=== PATIENT | male | born 1965 | race Caucasian/White ===

== ENCOUNTER 2016-10-29 21:16 | Inpatient (IN) | payer OTHER ==
--- NOTE | ~2016-10-29 | DS ---
Unit #: [id number] #: [id number] Patient: ANNA CARUSO [id number] [address] [address] [id number] I MR#: [id number] NAME: ANNA CARUSO ROOM: 57 Age: 51 Sex: M Admission Date: 10/29/2016 : 1965 Discharge Date: Attending Physician: Janki Coffman M.D. Primary Care Physician: Primary Care Physician No DISCHARGE SUMMARY DISCHARGE DIAGNOSES 1. Acute hypoxic respiratory failure present on admission. 2. Chronic obstructive pulmonary disease with exacerbation. 3. History of seizures on gabapentin. 4. History of anxiety. 5. Alcohol dependence with mild delirium tremens. 6. Diabetes mellitus, type 2, uncontrolled. 7. Smoking. CONSULTATIONS None. PROCEDURES None. LABORATORY DATA Blood cultures negative, glucose 162, creatinine 0.5, ammonia 40, INR 1.0, WBC 1.8, hemoglobin 14.8, platelets 251, hemoglobin A1c 5.7. ALLERGIES None. DISCHARGE MEDICATIONS 1. Neurontin 800 four times daily 2. Amitriptyline 50 daily 3. Zoloft 150 daily 4. Nicotine 21 mg transdermal daily 5. Minipress 1 mg p.o. daily 6. Doxycycline 100 p.o. b.i.d. 7. Symbicort 160 mcg two puffs inhalation b.i.d. 8. Robitussin 10 mL p.o. three times daily p.r.n. cough 9. Thiamine 100 daily 10. Folic acid 1 mg daily 11. Prednisone tapering dose 12. Albuterol MDI two puffs inhalation four times daily p.r.n. shortness of breath HOSPITALIZATION COURSE [age] year old, admitted with shortness of breath: Acute hypoxic respiratory failure from chronic obstructive pulmonary disease, currently off oxygen. Chronic obstructive pulmonary disease with exacerbation, started on Unit #: [id number] #: [id number] Patient: ANNA CARUSO Krissbs with IV Solu-Medrol, currently he does have occasional wheezing. Continue the prednisone tapering dose, Symbicort, albuterol at home. Alcohol dependence with delirium tremens, the patient received IV Ativan and alcohol withdrawal protocol, and thiamine IV. The patient will be discharged on Librium, thiamine, and folic acid. Diabetes mellitus, type 2, uncontrolled. History of seizures, continue with gabapentin. Discharge home and follow with family physician in one week's time. Dictated by... Mike Car TD: 10/31/2016 13:50 JOB #: [id number] DISCHARGE SUMMARY Page 1 of 1 X Janki Coffman MD X DISCHARGE SUMMARY
--- NOTE | ~2016-10-29 | CR72 ---
[facility] A Service of [facility] RADIOLOGY TEXT RESULTS PATIENT: ANNA CARUSO LOCATION: [facility] : [birth year] UNIT #: [id number] AGE: [address]: Gt Meraz MD SEX: M ORDER DR: [id number] [facility] [address] [place], [place] [address] [id number] MR#: [id number] Acc #: [id number] NAME: ANNA CARUSO : 1965 SEX: M STUDY DATE/TIME: 10/29/2016 21:35 UNIT: [facility] ROOM: STUDY DESCRIPTION: CR Chest Single View Portable Attending Physician: Gt Meraz M.D. Ordering Physician: Gt Meraz M.D. MEDICAL IMAGING REPORT This report is preliminary unless electronic signature is present EXAM Portable chest HISTORY Shortness of air. Cough and COPD. Symptoms for 2 days. FINDINGS Mild hyperinflation of both lungs. Cardiac size and pulmonary vascularity are normal. Minimal left suprahilar atelectasis. Remainder lungs are clear. Old fractures lateral left fourth and fifth ribs. IMPRESSION No acute findings. No active disease. Dictated by... Steffen Swartz M.D. THIS IS AN ELECTRONICALLY VERIFIED REPORT Steffen Swartz M.D. at 10/29/2016 10:32 PM DFL/pcl TD: 10/29/2016 22:24 JOB #: [id number] MEDICAL IMAGING REPORT Page 1 of 1 COPY
--- NOTE | ~2016-10-29 | HP ---
Unit #: [id number] #: [id number] Patient: ANNA CARUSO [id number] [address] [place], [place] [address] [id number] I MR#: [id number] NAME: ANNA CARUSO ROOM: 571 Age: 51 Sex: M Admission Date: 10/29/2016 : 1965 Attending Physician: Janki Coffman M.D. Primary Care Physician: No Primary Care Physician HISTORY AND PHYSICAL CHIEF COMPLAINT Shortness of breath, cough, and wheezing. DISCUSSION This is a 51-year-old gentleman with a past medical history of COPD, history of seizures on gabapentin, anxiety, and history of diabetes (before told positive diabetes, been on diet, not on medication). He says he has some rescue inhalers. Otherwise, he used to be on Spiriva in the past, but has not been using for a long time. He presented to the hospital with chief complaining of shortness of breath. Symptoms started two days ago and got progressively worse and he was unable to breathe today and came to the emergency room and found to be in COPD exacerbation. Oxygen saturation initially was 88%, which was improved after oxygen and, eventually, he had been admitted for COPD exacerbation. Denied chest pain. Denies nausea and vomiting. Mainly, he had been having mainly dry cough and wheezing and shortness of breath, but no other complaint. No headache. No dizziness. PAST MEDICAL HISTORY 1. History of COPD. 2. History of seizures on gabapentin. 3. History of anxiety. 4. History of diabetes on a diet. PAST SURGICAL HISTORY 1. History of right ear surgery. 2. History of bilateral inguinal hernia repairs. SOCIAL HISTORY He used to smoke 1-2 packs daily since age 17 and still continues to smoke 1/2 pack daily. He drinks alcohol, 2-3 beers, on a daily basis. Denies any illicit drug use. FAMILY HISTORY Diabetes in grandmother. ALLERGIES No known drug allergies. HOME MEDICATIONS He said he takes gabapentin 800 mg 4 times daily, aspirin, and some rescue inhalers (he does not know the name). REVIEW OF SYSTEMS Unit #: [id number] #: [id number] Patient: ANNA CARUSO All review of systems negative, except the history of present illness. PHYSICAL EXAMINATION GENERAL APPEARANCE: Middle-aged man lying in the bed comfortably. Currently not in any distress. He is alert, awake, and oriented x3. VITAL SIGNS: His current vitals are following: Temperature 97.4, heart rate 113, respiratory rate 18, and blood pressure 164/97. HEENT: Pupils equal and reactive to light and accommodation. Head is normocephalic and atraumatic. Head is atraumatic and normocephalic. Sclerae nonicteric. Extraocular muscles intact. NECK: Supple. No JVD. LUNGS: Bilateral rhonchi and expiratory wheeze positive. HEART: S1 and S2. Regular rate and rhythm. Tachycardia. ABDOMEN: Soft, nontender, and nondistended. Bowel sounds positive. EXTREMITIES: Inspection normal. No cyanosis, no clubbing, and no edema. NEURO: Alert and oriented x4. Cranial nerves, II-XII, are intact. Power 5/5 on both sides. PSYCH: Normal mood and affect. SKIN: No rash. Warm and dry. DIAGNOSTIC STUDIES LABORATORY: Sodium 138, potassium 4.1, chloride 105, glucose 83, BUN 5, creatinine 0.7, and LFTs within normal limits. Troponin less than 0.05. White count is 10, hemoglobin 16, hematocrit 48, and platelets are 251. IMAGING: Chest x-ray: No acute findings. ASSESSMENT AND PLAN 1. Acute exacerbation of COPD. Will admit the patient on monitored bed and start on IV Solu-Medrol, IV Levaquin, and the nebulizer. 2. History of seizures on gabapentin. 3. History of anxiety. 4. History of diabetes. Was told before. I will repeat A1c and place on sliding scale while on steroids. 5. GI prophylaxis, start on Protonix. 6. Tobacco and alcohol abuse. 7. DVT prophylaxis, will place the patient on Lovenox. Dictated by Mike Armas/arnol TD: 10/30/2016 06:06 JOB #: [id number] HISTORY AND PHYSICAL Page 1 of 1 X X HISTORY AND PHYSICAL
--- NOTE | ~2016-10-29 | EKG ---
PATIENT: ANNA CARUSO UNIT #: [id number] Ventricular Rate: 109 BPM Atrial Rate: 109 BPM P-R Interval: 178 ms QRS Duration: 96 ms Q-T Interval: 344 ms QTC Calculation(Bezet): 463 ms P [place]: 72 degrees Calculated R [place]: 73 degrees Calculated T [place]: 70 degrees Diagnosis Line: Sinus tachycardia Diagnosis Line: Possible Left atrial enlargement Diagnosis Line: Incomplete right bundle branch block Diagnosis Line: Borderline ECG Diagnosis Line: No previous ECGs available Diagnosis Line: Confirmed by MADHURI FELIX MD ([id number]) on 10/30/2016 Diagnosis Line: 6:29:29 PM INTERPRETING MD: ISIDRO STREET
[2016-10-29 21:37] LABS: BASOPHIL% 0.3 % (0-2.5); DIFF IND NO; EOSINOPHIL# 0.2 X10e3 (0-0.7); EOSINOPHIL% 2.2 % (0.0-7.0); HEMATOCRIT 48.8 % (38.0-50.0); HEMOGLOBIN 16.3 gm/dL (13.0-16.0); LYMPHOCYTE# 1.5 X10e3 (1.0-3.5); LYMPHOCYTE% 13.4 % (17.0-45.0); MEAN CORPUSCULAR HEMOGLOBIN 31.7 PG (28-34); MEAN CORPUSCULAR HGB CONC 33.3 g/dL (30-36); MEAN PLATELET VOLUME 7.6 FL (6.5-11.5); MONOCYTE# 0.6 X10e3 (0-1.0); MONOCYTE% 5.9 % (3.0-12.0); NEUTROPHIL# 8.5 X10e3 (1.5-7.1); NEUTROPHIL% 78.2 % (40-75); PLATELET COUNT 251 X10e3 (140-420); RED BLOOD COUNT 5.14 X10e (3.90-5.60); RED CELL DISTRIBUTION WIDTH 16.2 % (11.0-15.5); WHITE BLOOD COUNT 10.9 X10e3 (4.0-10.5)
[2016-10-29 22:05] LABS: POC - CKMB 2.9 ng/mL (0.0-7.9); POC - TROPONIN <0.05 ng/mL (<=0.05)
[2016-10-29 22:06] LABS: ALBUMIN SERUM 3.6 g/dL (3.5-5.0); BILIRUBIN, DIRECT 0.1 mg/dL (0.0-0.2); BILIRUBIN,INDIRECT 0.7 mg/dL (0.0-0.9); BILIRUBIN,TOTAL 0.8 mg/dL (0.2-2.0); BUN/CREATININE RATIO 7.14; CREATININE SERUM 0.7 mg/dL (0.6-1.4); GLOM FILT RATE Estimated 110.9 mL/min (>60); POTASSIUM 4.1 mmol/L (3.5-5.1); PROTEIN TOTAL SERUM 7.3 g/dL (6.0-8.3)
[2016-10-30 07:18] LABS: BUN/CREATININE RATIO 11.66; CREATININE SERUM 0.6 mg/dL (0.6-1.4); GLOM FILT RATE Estimated 118.1 mL/min (>60)
[2016-10-30] MEDS ORDERED: AMITRIPTYLINE H50 MG PO (18:49)
[2016-10-30] MEDS ORDERED: MINIPRESS1 MG PO (18:50)
[2016-10-30] MEDS ORDERED: ZOLOFT100 MG PO (18:51)
[2016-10-30] MEDS ORDERED: NEURONTIN800 MG PO (18:51)
[2016-10-31 06:27] LABS: BASOPHIL# 0.1 X10e3 (0-0.3); BASOPHIL% 1.2 % (0-2.5); HEMATOCRIT 45.3 % (38.0-50.0); HEMOGLOBIN 14.8 gm/dL (13.0-16.0); LYMPHOCYTE# 0.4 X10e3 (1.0-3.5); LYMPHOCYTE% 3.3 % (17.0-45.0); MEAN CELL VOLUME 96.3 FL (83-96); MEAN CORPUSCULAR HEMOGLOBIN 31.6 PG (28-34); MEAN CORPUSCULAR HGB CONC 32.8 g/dL (30-36); MEAN PLATELET VOLUME 7.8 FL (6.5-11.5); MONOCYTE# 0.2 X10e3 (0-1.0); NEUTROPHIL% 93.5 % (40-75); PLATELET COUNT 251 X10e3 (140-420); RED CELL DISTRIBUTION WIDTH 16.1 % (11.0-15.5); WHITE BLOOD COUNT 11.8 X10e3 (4.0-10.5)
[2016-10-31 06:28] LABS: DIFF IND NO
[2016-10-31 06:50] LABS: PROTHROMBIN TIME (PATIENT) 10.4 SECONDS (9.6-11.5)
[2016-10-31 07:18] LABS: BILIRUBIN,TOTAL 0.3 mg/dL (0.2-2.0); CALCIUM SERUM 8.6 mg/dL (8.4-10.2); CREATININE SERUM 0.5 mg/dL (0.6-1.4); GLOM FILT RATE Estimated 127.3 mL/min (>60); POTASSIUM 3.7 mmol/L (3.5-5.1); PROTEIN TOTAL SERUM 6.7 g/dL (6.0-8.3)
[2016-10-31] MEDS ORDERED: NICOTINE PATCH1 EACH TD (13:20)
[2016-10-31] MEDS ORDERED: SYMBICORT INH (13:24)
[2016-10-31] MEDS ORDERED: ALBUTEROL17 GM INH (13:25)
[2016-10-31] MEDS ORDERED: PREDNISONE PO (13:25)
[2016-10-31] MEDS ORDERED: THIAMINE HCL100 M1 PO (13:26)
[2016-10-31] MEDS ORDERED: FOLIC ACID1 MG PO (13:26)
[2016-10-31] MEDS ORDERED: [UNRECOGNIZED DRUG - OTHER] PO (13:29)
[2016-10-31] MEDS ORDERED: DOXYCYCLINE HY100 M3 PO (13:29)
[2016-10-31] MEDS ORDERED: LIBRIUM25 M1 PO (13:30)
== END 2016-10-31 18:31 | disposition home or self-care (01) | DRG 189 ==
LOC: CED 21:16 → CEDOF 23:10 → C5C 10-30 00:31
PROVIDERS: Emergency Medicine; Family Medicine
DX: J96.01 Acute respiratory failure with hypoxia (principal); E11.65 Type 2 diabetes mellitus with hyperglycemia; J44.1 Chronic obstructive pulmonary disease with (acute) exacerbation; F41.9 Anxiety disorder, unspecified; F17.210 Nicotine dependence, cigarettes, uncomplicated; F10.20 Alcohol dependence, uncomplicated
CPT/HCPCS: 36415; 71010; 80048; 80053; 80076; 82140; 82553; 82947; 83036; 84484; 85025; 85610; 87040; 93005; 94640; 94760; 96374; 99285; J1650; J1815; J1956; J2920; J2930; J3411; J3475

== ENCOUNTER 2016-11-03 02:06 | Inpatient (IN) | payer OTHER ==
--- NOTE | ~2016-11-03 | DS ---
Unit #: [id number] #: [id number] Patient: ANNA CARUSO [id number] [address] [place], [place] [address] [id number] I MR#: [id number] NAME: ANNA CARUSO ROOM: 313 Age: 51 Sex: M Admission Date: 11/03/2016 : 1965 Discharge Date: 11/05/2016 Attending Physician: Talat Purcell M.D. Primary Care Physician: No Primary Care Physician DISCHARGE SUMMARY DISCHARGE DIAGNOSES 1. Aspiration pneumonia, was treated with IV Zosyn, will be discharged with Levaquin orally. 2. Esophageal dysphagia: Gastroenterology has been consulted and will do any workup outpatient. 3. Urinary retention: A catheter was transiently used. Patient has had catheter removed, was seen by urologist. A PSA was ordered. Patient will follow up with urology outpatient. 4. Acute chronic obstructive pulmonary disease exacerbation: IV steroid was utilized and a slow taper course of prednisone to discharge home with. 5. Continued alcohol abuse: Stable, no seizure during this hospitalization. 6. Diet-controlled type 2 diabetes. 7. Seizure disorder. 8. Tobacco use. 9. History of hepatitis C. CONSULTANTS 1. Dr. Basurto with gastroenterology. 2. [facility]. PROCEDURE None. DIAGNOSTIC STUDIES LABORATORY: On the day of discharge, labs include BMP: Glucose 170, BUN 13, creatinine 0.6, sodium 137, potassium 3.6, chloride 105, CO2 of 24, calcium 8.5. Magnesium 1.9. CBC with WBC 11.4, RBC 4.57, hemoglobin 14.3, hematocrit 44, MCV 96.2, MCH 31.2, MCHC 32.4, RDW 15.6, platelets 276,000, MPV 7.4. IMAGING: Chest x-ray, November 03, 2016: Impression - COPD. Patchy infiltrates in the right upper lobe medially and left perihilar region, new or increased since study on October 29, 2016. Heart size normal. Old healed right upper rib fractures. HOSPITAL COURSE The patient is a 51-year-old male with past medical history of ongoing alcohol abuse, seizure disorder, COPD, ongoing tobacco usage who presented to the emergency department due to worsening of shortness of breath, cough, and congestion. The patient was admitted October 29 through October 31 Unit #: [id number] #: [id number] Patient: ANNA CARUSO for COPD exacerbation with hypoxic respiratory failure. He was anxious to leave at that time; therefore, he was discharged home on doxycycline along with oral steroids and developed worsening shortness of breath despite being back on the steroid treatment, also wheezing with a nonproductive cough and diaphoresis. He went back to the emergency department due to severe pain in his chest which really sounds like pleuritic chest pain, worsens with cough. States that when he holds onto his chest when he coughs the symptoms are better. In the emergency department, his oxygen saturation was 88% to 90% on room air. Chest x-ray showed increased infiltrate. Patient readmitted for persistent pneumonia and acute COPD exacerbation. The patient was treated with Zosyn for likely aspiration pneumonia given patient's significant history of severe alcohol abuse. Due to his persistent pneumonia, Speech Therapy was consulted who notes the patient has esophageal dysphagia and therefore, Dr. aBsurto of gastroenterology was consulted who thought that the patient was stable to be discharged home and to call the office for further workup. Patient also had symptoms of dysuria present on admission. He was started on Flomax but despite this, he did not have great urine output and a bladder scan revealed that patient's post-void scan was I believe was 400 mL. Therefore, a catheter was placed and Dr. Boggs of [facility] Urology was consulted. Patient was seen by Urology. A PSA was checked which was found to be 2.13 which is nonelevated according to all of the standards. The following day, the patient's Sultana was removed and, per nursing staff, patient is urinating. At this time, the patient is stable, oxygenating well on room air. Patient's oxygen saturation documented was 98% on room air. Patient states that he feels much better and he is ready to be discharge home. The patient was seen in consultation with Dr. Chapin because of ongoing alcohol abuse. He voiced to me that he does have the desire to quit drinking and social services manager has provided him handout as needed. Stressed to patient that his prognosis is poor if he is to continue to drink. DISCHARGE CONDITION Stable to home. FOLLOWUP 1. He is to follow up with primary care physician within one to two weeks. 2. Followup with Dr. Basurto, call his office. 3. Followup with Urology within one to two weeks. DISCHARGE ACTIVITY Nonrestricted. DIET Nonrestricted. DISCHARGE MEDICATIONS 1. Ventolin two puffs inhaled four times daily as needed for shortness of breath. 2. Dulera as that is what is covered with his insurance 200 mcg inhaled twice daily. 3. Prednisone 40 mg orally x3 days, 30 mg orally x3 days, 20 mg orally x3 days, then 10 mg orally x3 days. 4. Flomax 0.4 orally mg at bedtime. 5. Gabapentin 800 mg orally four times daily. 6. Amitriptyline 50 mg orally at bedtime. 7. Zoloft 150 mg orally every morning. Unit #: [id number] #: [id number] Patient: ANNA CARUSO 8. Librium 25 mg orally daily. 9. Minipress 1 mg orally daily. 10. Folic acid 1 mg orally daily. 11. Thiamine 100 mg orally daily. 12. Levaquin 750 mg orally daily for the next 10 days. Dictated by... Eitan Obrien PA-C for Mike Agarwal TD: 11/05/2016 16:59 JOB #: [id number] DISCHARGE SUMMARY Page 1 of 1 X X DISCHARGE SUMMARY
--- NOTE | ~2016-11-03 | CO ---
Unit #: [id number] #: [id number] Patient: ANNA CARUSO [id number] [address] [address] [id number] I MR#: [id number] NAME: ANNA CARUSO ROOM: 313 Age: 51 Sex: M Admission Date: 11/03/2016 : 1965 Attending Physician: Talat Purcell M.D. Primary Care Physician: No Primary Care Physician Consultation Date: 11/04/2016 CONSULTATION REPORT REASON FOR CONSULTATION Urinary retention. HISTORY This 51-year-old man was recently hospitalized for pneumonia and decided to leave prematurely but returns due to worsening of his respiratory status. He was noted to have increased severity of chronic voiding symptoms and a Sultana catheter was placed for (1) . He is slow to awaken this morning but his helps clarify with us that he has severe nocturia at least four times at night and he has urinary hesitancy, frequency, urgency, and a sense of trouble emptying. He does not recall any history of gross hematuria, urine infections, or stone disease. He has not had treatment for his voiding difficulties. Of pertinence is obvious chronic alcohol use. PAST MEDICAL HISTORY 1. ETOH. 2. Pneumonia. 3. Noncompliance. 4. COPD. 5. Seizures. 6. Diabetes. 7. Alcohol withdrawal noted on recent admission. 8. Anxiety. 9. Diagnosis of hepatitis C. PAST SURGICAL HISTORY 1. Right ear. 2. Bilateral inguinal herniorrhaphy. MEDICATIONS Include tamsulosin, just started. On admission, he was takin. Neurontin. 2. Elavil. 3. Zoloft. 4. Nicoderm. 5. Minipress. 6. Doxycycline. 7. Symbicort. 8. Robitussin. 9. Thiamine. 10. Folic acid. 11. Prednisone taper. 12. Albuterol. Unit #: [id number] #: [id number] Patient: ANNA CARUSO FAMILY HISTORY Negative for prostate cancer. SOCIAL HISTORY Lives with of 22 years. Smokes one pack per day for 34 years. Alcohol use exceeding six-pack most days. REVIEW OF SYSTEMS Includes cough, chest pain, shortness of breath, wheezing, diaphoresis, as well as, the above urinary symptoms, nightmares. Other systems reviewed and negative. PHYSICAL EXAMINATION GENERAL: On examination, patient is awake, alert, and comfortable during the questioning. ABDOMEN: Soft, nontender. No scars. No masses, hernias, or organomegaly. GENITALIA: Phallus normal. Circumcised. Sultana catheter in place draining clear yellow urine. Testes and epididymis normal, descended. Healthy skin in the perineum. Good hygiene. DIGITAL: Normal anus and sphincter tone. Empty vault. Prostate feels 40 g smooth, benign with no nodularity, fluctuance, or tenderness. EXTREMITIES: No edema. NEUROLOGIC: Intact. SKIN: Normal. DIAGNOSTIC STUDIES LABORATORY: Creatinine 0.7. Liver function tests are normal. Sodium 131. Ethanol 151. IMPRESSION Urinary retention due to be benign prostatic hypertrophy (untreated) as well as likely some degree of alcohol (2) . PLAN Will check a PSA. As bladder was not dramatically distended, will proceed with a voiding trial in the morning. Thank, Demi Gustafson, for the consultation. Dictated by... Brian Boggs M.D. [facility]/jose TD: 11/04/2016 12:41 JOB #: [id number] CC: Demi De Oliveira M.D. Unit #: [id number] #: [id number] Patient: ANNA CARUSO CONSULTATION REPORT Page 1 of 1 X Brian Boggs MD X CONSULTATION REPORT
--- NOTE | ~2016-11-03 | EKG ---
PATIENT: ANNA CARUSO UNIT #: [id number] Ventricular Rate: 87 BPM Atrial Rate: 87 BPM P-R Interval: 180 ms QRS Duration: 92 ms Q-T Interval: 396 ms QTC Calculation(Bezet): 476 ms P [place]: 51 degrees Calculated R [place]: 58 degrees Calculated T [place]: 64 degrees Diagnosis Line: Normal sinus rhythm Diagnosis Line: Normal ECG Diagnosis Line: When compared with ECG of 03-NOV-2016 02:39, Diagnosis Line: (unconfirmed) Diagnosis Line: No significant change was found Diagnosis Line: Confirmed by MADHURI FELIX MD ([id number]) on 11/03/2016 Diagnosis Line: 10:39:18 PM INTERPRETING MD: ISIDRO STREET
--- NOTE | ~2016-11-03 | CR72 ---
[facility] A Service of [facility] RADIOLOGY TEXT RESULTS PATIENT: ANNA CARUSO LOCATION: [facility] 313-01 : [birth year] UNIT #: [id number] AGE: [address]: Demi De Oliveira MD SEX: M ORDER DR: [id number] [facility]. [place], [place] [address] [id number] E MR#: [id number] Acc #: [id number] NAME: ANNA CARUSO : 1965 SEX: M STUDY DATE/TIME: 11/03/2016 2:30 UNIT: [facility] ROOM: STUDY DESCRIPTION: CR Chest Single View Portable Attending Physician: Gt Meraz M.D. Ordering Physician: Gt Meraz M.D. Primary Care Physician: Primary Care Physician No MEDICAL IMAGING REPORT This report is preliminary unless electronic signature is present EXAM Chest x-ray 11/03/2016 HISTORY 51-year-old male in the ED complaining of 1-week history of shortness of air, cough and chest pain. Smoker. TECHNIQUE AP portable upright chest x-ray. FINDINGS Generalized pulmonary hyperinflation suggests COPD. Patchy infiltrate in the right upper lobe medially and in the left perihilar region, new or increased since 10/29/2016. No dense airspace consolidation or pleural effusion. Heart size normal. Old healed right upper rib fractures. IMPRESSION 1. COPD. 2. Patchy infiltrates in the right upper lobe medially and left perihilar region, new or increased since the recent study of 10/29/2016. 3. Heart size normal. 4. Old healed right upper rib fractures. Dictated by... Juan Nation M.D. THIS IS AN ELECTRONICALLY VERIFIED REPORT Juan Nation M.D. at 11/03/2016 5:59 AM ARNAVW/karl TD: 11/03/2016 03:02 [facility] A Service of [facility] RADIOLOGY TEXT RESULTS PATIENT: ANNA CARUSO [id number] [birth year] UNIT #: [id number] AGE: [address]: Demi De Oliveira MD SEX: M ORDER DR: JOB #: [id number] MEDICAL IMAGING REPORT Page 1 of 1 COPY
--- NOTE | ~2016-11-03 | HP ---
Unit #: [id number] #: [id number] Patient: ANNA CARUSO [id number] [address] [place], [place] [address] [id number] I MR#: [id number] NAME: ANNA CARUSO ROOM: 313 Age: 51 Sex: M Admission Date: 11/03/2016 : 1965 Attending Physician: Demi De Oliveira M.D. Primary Care Physician: No Primary Care Physician HISTORY AND PHYSICAL CHIEF COMPLAINT Pneumonia, COPD exacerbation. HISTORY OF PRESENT ILLNESS This 51-year-old male with COPD, seizure disorder, alcohol abuse is admitted for COPD exacerbation and worsening pneumonia. The patient was admitted to this facility 10/29 through 10/31/2016 for COPD exacerbation and respiratory failure. He did not want to stay further and he was discharged home on doxycycline along with steroids. He developed increasing shortness of breath despite above-mentioned treatment along with wheezing and a nonproductive cough with diaphoresis. He also admits to pleuritic chest pain. He comes back to this hospital where he is wheezing on exam. O2 sats, at times, are between 88 and 90%. Chest x-ray shows increased infiltrates. In the ER, he was given Solu-Medrol, Zosyn and Zithromax and referred for admission. Although he was recently admitted, he did not stayed for the entire 48 hours. I do not believe that his current infiltrates represent hospital-acquired pneumonia. PAST MEDICAL HISTORY 1. COPD. 2. Seizure disorder. 3. Anxiety. 4. Diet-controlled diabetes mellitus. 5. Nightmares. 6. Hepatitis C. 7. Voiding difficulties. 8. Right ear surgery. 9. Bilateral inguinal hernia repair. SOCIAL HISTORY The patient lives with his of 22 years. He smokes one pack per day of tobacco, has been smoking since age 17. He drinks some, at times, a six pack or more but not necessarily on a daily basis. However, during his last hospitalization, he did experience alcohol withdrawal. FAMILY HISTORY Diabetes mellitus. ALLERGIES None. HOME MEDICATIONS 1. Neurontin 800 mg q.i.d. Unit #: [id number] #: [id number] Patient: ANNA CARUSO 2. Elavil 50 mg daily. 3. Zoloft 150 mg daily. 4. Nicoderm patch which the patient is not using. 5. Minipress 1 mg q.h.s. 6. Doxycycline 100 mg b.i.d. 7. Symbicort 160 mcg two puffs b.i.d. 8. Robitussin p.r.n. 9. Thiamine 100 mg daily. 10. Folic acid 1 mg daily. 11. Prednisone taper. 12. Albuterol. REVIEW OF SYSTEMS Notable for cough, pleuritic chest pain, shortness of breath, wheezing, COPD, diaphoresis, alcohol abuse, hepatitis C, difficulty with urinary voiding, seizure disorder, diet controlled diabetes mellitus, nightmares, anxiety, above-mentioned surgeries. All other systems were reviewed and are otherwise negative. PHYSICAL EXAMINATION GENERAL APPEARANCE: A pleasant, 51-year-old male who currently is in no acute distress. VITAL SIGNS: Temperature 97.6. Pulse 70. Respirations 18. Blood pressure 119/72. O2 saturation was as low as 88 to 90%. HEENT: Eyes: PERRLA. Extraocular muscles are intact. Pharynx is benign. NECK: Supple without adenopathy or thyromegaly. CHEST: Reveals expiratory wheezes and rhonchi. CARDIAC: Normal S1, S2 without S3, S4 or murmur. ABDOMEN: Bowel sounds are present. No hepatosplenomegaly, tenderness or masses. EXTREMITIES: Without clubbing, cyanosis or edema. Pedal pulses are present. NEUROLOGIC: The patient is awake, alert, oriented. Cranial nerves are intact. Equal strength throughout. DIAGNOSTIC STUDIES LABORATORY: Hematocrit 42.8, WBC count 12.3, normal platelet count. SMA-12: Potassium 3.3, CO2 21, albumin 3.4. Alcohol 151. IMAGING: Chest x-ray shows new or increased pulmonary infiltrates right upper lobe, left perihilar region, old rib fractures, COPD. CARDIOVASCULAR: EKG shows a normal sinus rhythm, rate 87, normal appearing. ASSESSMENT 1. Pneumonia representing either a community-acquired pneumonia or aspiration pneumonia with hypoxic respiratory failure. 2. COPD exacerbation. 3. Alcohol abuse. 4. Diet-controlled AODM. 5. Seizure disorder. 6. Tobacco abuse. 7. Hepatitis C. 8. Voiding difficulties. PLAN 1. Zosyn and Zithromax. Unit #: [id number] #: [id number] Patient: ANNA CARUSO 2. Steroids and bronchodilators. 3. Smoking cessation counseling. 4. DVT prophylaxis. 5. Benzodiazepines and vitamins. 6. Start Flomax and I have recommended to the patient that he have his primary care physician evaluate his voiding difficulties further especially if not improving with Flomax. 7. 1. Dictated by Mike Pierre/bd TD: 11/03/2016 07:20 JOB #: [id number] HISTORY AND PHYSICAL Page 1 of 1 X Demi De Oliveira MD X HISTORY AND PHYSICAL
[~2016-11-03 02:06] MED LIST: ALBUTEROL17 GM INH; AMITRIPTYLINE H50 MG PO; DOXYCYCLINE HY100 M3 PO; FOLIC ACID1 MG PO; LIBRIUM25 M1 PO; MINIPRESS1 MG PO; NEURONTIN800 MG PO; NICOTINE PATCH1 EACH TD; PREDNISONE PO; SYMBICORT INH; THIAMINE HCL100 M1 PO; ZOLOFT100 MG PO; [UNRECOGNIZED DRUG - OTHER] PO
[2016-11-03 02:19] LABS: BASOPHIL% 0.3 % (0-2.5); DIFF IND NO; EOSINOPHIL% 0.2 % (0.0-7.0); HEMATOCRIT 42.8 % (38.0-50.0); HEMOGLOBIN 14.1 gm/dL (13.0-16.0); LYMPHOCYTE# 1.3 X10e3 (1.0-3.5); LYMPHOCYTE% 10.5 % (17.0-45.0); MEAN CELL VOLUME 95.9 FL (83-96); MEAN CORPUSCULAR HEMOGLOBIN 31.5 PG (28-34); MEAN CORPUSCULAR HGB CONC 32.8 g/dL (30-36); MEAN PLATELET VOLUME 7.4 FL (6.5-11.5); MONOCYTE# 0.5 X10e3 (0-1.0); MONOCYTE% 4.3 % (3.0-12.0); NEUTROPHIL# 10.4 X10e3 (1.5-7.1); NEUTROPHIL% 84.7 % (40-75); PLATELET COUNT 259 X10e3 (140-420); RED BLOOD COUNT 4.47 X10e (3.90-5.60); WHITE BLOOD COUNT 12.3 X10e3 (4.0-10.5)
[2016-11-03 02:51] LABS: ALBUMIN SERUM 3.4 g/dL (3.5-5.0); BILIRUBIN, DIRECT 0.1 mg/dL (0.0-0.2); BILIRUBIN,INDIRECT 0.6 mg/dL (0.0-0.9); BILIRUBIN,TOTAL 0.7 mg/dL (0.2-2.0); BUN/CREATININE RATIO 8.57; CALCIUM SERUM 8.7 mg/dL (8.4-10.2); CREATININE SERUM 0.7 mg/dL (0.6-1.4); GLOM FILT RATE Estimated 110.9 mL/min (>60); POTASSIUM 3.3 mmol/L (3.5-5.1); PROTEIN TOTAL SERUM 7.1 g/dL (6.0-8.3)
[2016-11-03 02:54] LABS: POC - CKMB 1.7 ng/mL (0.0-7.9); POC - TROPONIN <0.05 ng/mL (<=0.05)
[2016-11-03 18:01] LABS: URINE BILIRUBIN NEG (NEG); URINE BLOOD NEG (NEG); URINE COLOR YELLOW; URINE GLUCOSE 100 MG/DL (NEG); URINE KETONE TRACE (NEG); URINE LEUKOCYTE ESTERASE NEG (NEG); URINE NITRATE NEG (NEG); URINE PROTEIN NEG (NEG); URINE SPECIFIC GRAVITY 1.018 (1.003-1.035)
[2016-11-03 18:06] LABS: URINE APPEARANCE CLEAR
[2016-11-04 07:20] LABS: HEMATOCRIT 44.5 % (38.0-50.0); HEMOGLOBIN 14.3 gm/dL (13.0-16.0); MEAN CELL VOLUME 97.7 FL (83-96); MEAN CORPUSCULAR HEMOGLOBIN 31.5 PG (28-34); MEAN CORPUSCULAR HGB CONC 32.2 g/dL (30-36); RED BLOOD COUNT 4.56 X10e (3.90-5.60); WHITE BLOOD COUNT 13.1 X10e3 (4.0-10.5)
[2016-11-04 07:55] LABS: CALCIUM SERUM 8.5 mg/dL (8.4-10.2); CREATININE SERUM 0.6 mg/dL (0.6-1.4); GLOM FILT RATE Estimated 118.1 mL/min (>60); MAGNESIUM 1.9 mg/dL (1.6-3.0); POTASSIUM 3.5 mmol/L (3.5-5.1)
[2016-11-05 04:31] LABS: HEMOGLOBIN 14.3 gm/dL (13.0-16.0); MEAN CELL VOLUME 96.2 FL (83-96); MEAN CORPUSCULAR HEMOGLOBIN 31.2 PG (28-34); MEAN CORPUSCULAR HGB CONC 32.4 g/dL (30-36); MEAN PLATELET VOLUME 7.4 FL (6.5-11.5); RED BLOOD COUNT 4.57 X10e (3.90-5.60); RED CELL DISTRIBUTION WIDTH 15.6 % (11.0-15.5); WHITE BLOOD COUNT 11.4 X10e3 (4.0-10.5)
[2016-11-05 05:07] LABS: BUN/CREATININE RATIO 21.66; CALCIUM SERUM 8.5 mg/dL (8.4-10.2); CREATININE SERUM 0.6 mg/dL (0.6-1.4); GLOM FILT RATE Estimated 118.1 mL/min (>60); MAGNESIUM 1.9 mg/dL (1.6-3.0); POTASSIUM 3.6 mmol/L (3.5-5.1)
[2016-11-05] MEDS ORDERED: FLOMAX0.4 M1 PO (09:09)
[2016-11-05] MEDS ORDERED: LEVAQUIN750 M1 PO (09:10)
[2016-11-05] MEDS ORDERED: PROTONIX PO (09:12)
== END 2016-11-05 11:10 | disposition home or self-care (01) | DRG 178 ==
LOC: CED 02:06 → CEDOF 03:55 → C3A PCU 05:09
PROVIDERS: Emergency Medicine; Family Medicine
DX: J69.0 Pneumonitis due to inhalation of food and vomit (principal); J44.1 Chronic obstructive pulmonary disease with (acute) exacerbation; R13.14 Dysphagia, pharyngoesophageal phase; N40.1 Benign prostatic hyperplasia with lower urinary tract symptoms; R33.8 Other retention of urine; F10.10 Alcohol abuse, uncomplicated; E11.9 Type 2 diabetes mellitus without complications; G40.909 Epilepsy, unspecified, not intractable, without status epilepticus; B19.20 Unspecified viral hepatitis C without hepatic coma; K21.9 Gastro-esophageal reflux disease without esophagitis; F17.210 Nicotine dependence, cigarettes, uncomplicated; Z79.51 Long term (current) use of inhaled steroids; Z79.899 Other long term (current) drug therapy
CPT/HCPCS: 36415; 71010; 80048; 80076; 81003; 82550; 82553; 83735; 84153; 84484; 85025; 85027; 87040; 87070; 87086; 87205; 92610; 93005; 94640; 94760; 96374; 97161; 97165; 99285; G0480; J0456; J1650; J2543; J2920; J2930

== ENCOUNTER 2017-03-08 22:03 | Emergency (ER) | payer OTHER ==
[~2017-03-08] VITALS: Ht 175.3 cm; Wt 68.0 kg
--- NOTE | ~2017-03-08 | CR94 ---
[facility] A Service of [facility] & [facility] RADIOLOGY TEXT RESULTS PATIENT: ANNA CARUSO LOCATION: [facility] : 69 UNIT #: [id number] AGE: [address]: Gt Meraz MD SEX: M ORDER DR: [id number] [facility] [address] [place], [place] [address] [id number] E MR#: [id number] Acc #: [id number] NAME: ANNA CARUSO : 1965 SEX: M STUDY DATE/TIME: 03/09/2017 0:37 UNIT: [facility] ROOM: STUDY DESCRIPTION: CR Elbow Min 3 Views Rt Attending Physician: Gt Meraz M.D. Ordering Physician: Gt Meraz M.D. Primary Care Physician: No Primary Care Physician MEDICAL IMAGING REPORT This report is preliminary unless electronic signature is present EXAM Right elbow, 3 views. HISTORY Elbow pain after laceration 1 week ago. FINDINGS AP and lateral examination of the elbow shows satisfactory articulation of the humerus with the proximal radius and ulna. There is no identifiable fracture, dislocation, joint effusion, or radiopaque foreign body in the soft tissues. IMPRESSION Normal elbow. Dictated by... Steffen Swartz M.D. THIS IS AN ELECTRONICALLY VERIFIED REPORT Steffen Swartz M.D. at 03/09/2017 4:22 AM JERAMY/kavin TD: 03/09/2017 02:52 JOB #: [id number] MEDICAL IMAGING REPORT Page 1 of 1 COPY
[~2017-03-08 22:03] MED LIST changes: +FLOMAX0.4 M1 PO; +LEVAQUIN750 M1 PO; +PROTONIX PO
[2017-03-09 01:17] LABS: EOSINOPHIL# 0.1 X10e3 (0-0.7); EOSINOPHIL% 2.1 % (0.0-7.0); HEMATOCRIT 41.3 % (38.0-50.0); HEMOGLOBIN 14.1 gm/dL (13.0-16.0); LYMPHOCYTE# 0.9 X10e3 (1.0-3.5); LYMPHOCYTE% 25.2 % (17.0-45.0); MEAN CELL VOLUME 93.6 FL (83-96); MEAN CORPUSCULAR HEMOGLOBIN 31.9 PG (28-34); MEAN CORPUSCULAR HGB CONC 34.1 g/dL (30-36); MEAN PLATELET VOLUME 7.1 FL (6.5-11.5); MONOCYTE# 0.3 X10e3 (0-1.0); MONOCYTE% 9.8 % (3.0-12.0); NEUTROPHIL# 2.1 X10e3 (1.5-7.1); NEUTROPHIL% 61.9 % (40-75); PLATELET COUNT 189 X10e3 (140-420); RED BLOOD COUNT 4.42 X10e (3.90-5.60); RED CELL DISTRIBUTION WIDTH 14.7 % (11.0-15.5); WHITE BLOOD COUNT 3.5 X10e3 (4.0-10.5)
[2017-03-09 01:26] LABS: DIFF IND NO
[2017-03-09 01:38] LABS: CALCIUM SERUM 8.5 mg/dL (8.4-10.2); CREATININE SERUM 0.7 mg/dL (0.6-1.4); GLOM FILT RATE Estimated 110.9 mL/min (>60); POTASSIUM 3.9 mmol/L (3.5-5.1)
== END 2017-03-09 01:57 | disposition home or self-care (01) ==
LOC: CED 22:03
PROVIDERS: Emergency Medicine
DX: S51.011A Laceration without foreign body of right elbow, initial encounter (principal); F17.200 Nicotine dependence, unspecified, uncomplicated; W25.XXXA Contact with sharp glass, initial encounter; Y92.009 Unspecified place in unspecified non-institutional (private) residence as the place of occurrence of the external cause; J44.9 Chronic obstructive pulmonary disease, unspecified; E11.9 Type 2 diabetes mellitus without complications; G40.909 Epilepsy, unspecified, not intractable, without status epilepticus; F41.9 Anxiety disorder, unspecified; Z86.19 Personal history of other infectious and parasitic diseases
CPT/HCPCS: 36415; 73080; 80048; 85025; 96361; 96374; 99283; G0480; J1885